=== PATIENT | female | born 1945 | race Two or more races ===

== ENCOUNTER 2017-10-02 10:12 | Emergency (ER) | payer OTHER ==
[~2017-10-02] VITALS: Ht 160 cm; Wt 66.7 kg
[~2017-10-02 10:12] MED LIST: ALBUTEROL2.5 MG/3 M IH; BRONCOTRON-D S473 ML PO; CYMBALTA60 MG PO; FLEXERIL10 MG PO; KETO10TA2 PO; LIPITOR80 MG; LYRICA50 MG PO; MILLIPRED DP5 M1 PO; NEURONTIN800 MG; PREVACID N1 COMB.PKG PO; SKELAXIN400 MG PO; TRAMADOL HCL-AP1 TAB PO; TUSSIONEX PENN115 ML PO; VERAPAMIL HCL180 M1 PO; VYTORIN 10-40 M1 TAB PO; XANAX1 MG
[2017-10-02] MEDS ORDERED: PRILOSEC OTC20 MG (10:53)
[2017-10-02] MEDS ORDERED: ZANTAC150 M3 (10:54)
[2017-10-02] MEDS ORDERED: ZOLOFT50 MG (10:55)
[2017-10-02] MEDS ORDERED: HYDROXYCHLOROQ200 MG (10:56)
== END 2017-10-02 15:42 | disposition home or self-care (01) ==
LOC: ER 10:12
DX: M54.32 Sciatica, left side (principal)

== ENCOUNTER 2017-12-30 00:11 | Emergency (ER) | payer OTHER ==
[~2017-12-30] VITALS: Ht 160 cm; Wt 64.4 kg
[~2017-12-30 00:11] MED LIST changes: +HYDROXYCHLOROQ200 MG; +PRILOSEC OTC20 MG; +ZANTAC150 M3; +ZOLOFT50 MG
[2017-12-30] MEDS ORDERED: DOCUPRENE100 MG (00:20)
[2017-12-30] MEDS ORDERED: CLONAZEPAM1 M1 (00:20)
== END 2017-12-30 13:04 | disposition home or self-care (01) ==
LOC: ER 00:11
DX: R11.0 Nausea (principal); R10.13 Epigastric pain

== ENCOUNTER → 2022-09-16 | Outpatient (CLI) | payer OTHER ==
[~2022-09-16] MED LIST changes: +CLONAZEPAM1 M1; +DOCUPRENE100 MG
== END | disposition home or self-care (01) ==
LOC: RX STUDY 07:12
PROVIDERS: ATTEND Otolaryngology Plastic Surgery within the Head & Neck
DX: R13.19 Other dysphagia (principal); R05.3 Chronic cough; R09.89 Other specified symptoms and signs involving the circulatory and respiratory systems

== ENCOUNTER 2023-02-23 12:02 | Emergency (ER) | payer OTHER ==
[~2023-02-23] VITALS: Ht 160 cm; Wt 62.1 kg
[2023-02-23] MEDS ORDERED: VERELAN PM100 MG PO (12:35)
[2023-02-23] MEDS ORDERED: XANAX0.25 MG PO (12:35)
[2023-02-23] MEDS ORDERED: PEPCID40 MG PO (12:36)
[2023-02-23] MEDS ORDERED: [UNRECOGNIZED DRUG - OTHER] MC (12:37)
[2023-02-23] MEDS ORDERED: CODEINE-GUAIFE120 ML PO (14:43)
== END 2023-02-23 14:53 | disposition home or self-care (01) ==
LOC: ER 12:02
DX: R05.3 Chronic cough (principal); I11.9 Hypertensive heart disease without heart failure; Z87.09 Personal history of other diseases of the respiratory system; F41.8 Other specified anxiety disorders; Z88.8 Allergy status to other drugs, medicaments and biological substances